=== PATIENT | male | born 1955 | race Caucasian/White ===

== ENCOUNTER 2020-10-14 11:31 | Outpatient (RCR) | payer OTHER, SELFPAY | END 2020-12-15 23:59 | LOC: IMMUN 11:31 | PROVIDERS: PCP Family Medicine; Visit Provider Family Medicine | DX: Z23 Encounter for immunization (principal) | CPT/HCPCS: 0002A; 91300 ==

== ENCOUNTER 2021-10-04 09:15 | Outpatient (CLI) | payer BC, SELFPAY ==
--- NOTE | 2021-10-04 09:25 | EKG12_ITS ---
Test Reason : PREOP Blood Pressure : / mmHG Vent. Rate : 072 BPM Atrial Rate : 072 BPM P-R Int : 144 ms QRS Dur : 104 ms QT Int : 384 ms P-R-T Axes : 075 074 062 degrees QTc Int : 420 ms Normal sinus rhythm Normal ECG Confirmed by TERRELL CANADA, OMAR ([id number]), design editor SCARLETT PENG ([id number]) on 10/05/2021 10:42:57 AM Referred By: Mitul Rodgers Confirmed By:OMAR TEJADA MD
[2021-10-04 10:00] LABS: Hematocrit 44.9 % (40-54); Hemoglobin 16.2 g/dL (13.0-16.5); Mean Corp Hgb Conc 36.1 g/dL (32-36); Mean Corpuscular Hgb 32.9 pg (27.0-32.0); Mean Corpuscular Volume 91.3 fL (80-94); Mean Platelet Vol. 11.1 fl (6.2-12.0); Platelet Count 164 K/mm3 (150-450); RBC Distribution Width CV 11.5 % (11.6-14.6); RBC Distribution Width SD 38.5 fl (35.1-43.9); Red Blood Count 4.92 M/mm3 (4.6-6.2); White Blood Count 6.1 K/mm3 (4.4-11.0)
[2021-10-04 10:36] LABS: Anion Gap 5 (5-15); BUN 14 mg/dL (7-18); BUN/Creat Ratio 16.5 RATIO (10-20); Calcium,Total 8.8 mg/dL (8.5-10.1); Chloride 104 mmol/L (98-107); Creatinine, Serum 0.85 mg/dL (0.70-1.30); EST Glomerular Filtration Rate 97 mL/min (>60); Est Glom Filt Rate - Afr Amer 117 mL/min (>60); Glucose 102 mg/dL (74-106); Sodium Level 137 mmol/L (136-145)
== END 2021-10-04 23:59 | disposition home or self-care (01) ==
PROVIDERS: PCP Family Medicine; Referring Provider Physician Assistant; Visit Provider Physician Assistant
DX: Z01.810 Encounter for preprocedural cardiovascular examination (principal); Z01.818 Encounter for other preprocedural examination
CPT/HCPCS: 36415; 80048; 85027; 93005

== ENCOUNTER → 2022-11-03 | Outpatient (CLI) | payer BC, SELFPAY ==
[2022-11-03 18:14] LABS: PSA,Total- Diagnostic 5.53 ng/mL (0.0-4.0)
== END | disposition home or self-care (01) ==
LOC: LAB 16:12
PROVIDERS: Referring Provider Urology; Visit Provider Urology
DX: R97.20 Elevated prostate specific antigen [PSA] (principal)
CPT/HCPCS: 36415; 84153

== ENCOUNTER → 2022-11-25 | Outpatient (CLI) | payer BC, SELFPAY ==
--- NOTE | 2022-11-25 17:53 | MRI_ITS ---
MR Pelvis WO/W Contrast 11/25/2022 6:13 PM COMPARISON: None CLINICAL HISTORY: Elevated PSA levels. TECHNIQUE: Standard prostate MR protocol was used before and after administration of 15 cc IV Clariscan. FINDINGS: Prostate volume: 60cc PSA density: PSA level not provided. Length of membranous urethra: 11mm Post-biopsy hemorrhage: None Multiparametric MR evaluation: Heterogeneous appearance of the central gland is consistent with benign prostatic hyperplasia. Lesion 1: There is a 0.9 x 1.4 x 1 cm moderately T2 hypointense lesion in the left posterolateral peripheral zone near base. It is bright on DWI and dark on ADC map. T2 -4 DWI -4 DCE -indeterminate Overall PI-RADS v2 score = 4 Capsular margin and neurovascular bundle: Intact. Seminal vesicles: Possible involvement of the left seminal vesicle. Lymph nodes: Right pelvic side wall lymphadenopathy measuring 8 mm. Bones: No suspicious lesions in the field of view. MRI/Pelvis W/WO Contrast IMPRESSION: 1.4 cm PI-RADS 4 lesion in the left posterolateral PZ near base. - Questionable involvement of the left seminal vesicle. - 8 mm right pelvic sidewall lymphadenopathy. - No evidence of macroscopic extracapsular extension. - No suspicious bone lesions. Electronically Signed: Vamshi Hernandez MD at 21:05 EDT ,
[2022-11-25 18:21] LABS: CREATININE FINGERSTICK < 0.9 mg/dL (0.70-1.30); EGFR FINGERSTICK > 60.0000 mL/min (>60)
== END | disposition home or self-care (01) ==
PROVIDERS: Referring Provider Urology; Visit Provider Urology
DX: R97.20 Elevated prostate specific antigen [PSA] (principal)
CPT/HCPCS: 72197; A9575

== ENCOUNTER → 2022-12-08 | Outpatient (CLI) | payer BC, SELFPAY ==
--- NOTE | 2022-12-08 | IMM_PTH ---
PATIENT: BRYSON BUENROSTRO LOC: [facility] U#:[id number] AGE/SX: 67/M ROOM: RE12/08/[address]: Dr. Rufino Dunaway MD : 1955 BED: DIS: 12/08/2022 SPEC #: [id number] RECD: 12/13/22 10:11 STATUS: HODA REQ #: [id number] JORGE: 12/08/22 00:[address]: Rufino Dunaway DEPT: IMMUNOHISTOCHEMISTRY RECD BY: Adela Poon ENTERED: 12/13/22 10:16 SP TYPE: IMMUNO OTHR DR: Dr. Shree Thomas, DO Tissues: F - PROSTATE LEFT Procedures: P40 (add) 34BE12 (initial) PHYSICIAN & INSTITUTION [place] [id number] SPECIMEN INFORMATION: Tissue Source: F - Left prostate, base, core biopsy Clinical Info: Elevated PSA Specimen Number: [id number] CPT code: 88449, 55479 METHODOLOGY: Deparaffinized sections of prefer/formalin-fixed tissue or PAP/DQ stained slides are incubated with monoclonal/polyclonal antibodies/oligonucleotide probes. Localization is made via biotin free immunoperoxidase method. Appropriate controls are performed and reacted as expected. Results on target cell population are indicated in the following table: RESULTS: ANTIBODY / CLONE RESULT Block F P40 (BC28) negative 34BE12 (34BE12) negative These tests were developed and their performance characteristics determined by [facility]. They may not have been cleared or approved by the U.S. Food and Drug Administration. The FDA has determined that such clearance or approval is not necessary. The above immunohistochemical/dualISH markers are ordered and reviewed by the Pathologist. INTERPRETATION: F. Left prostate, base, core biopsy: A minute focus of adenocarcinoma. SJ:ar 12/14/2022
--- NOTE | 2022-12-08 | PROSBIL_PTH ---
PATIENT: BRYSON BUENROSTRO LOC: [facility] U#:[id number] AGE/SX: 67/M ROOM: RE12/08/[address]: Dr. Rufino Dunaway MD : 1955 BED: DIS: 12/08/2022 SPEC #: [id number] RECD: 12/08/22 08:56 STATUS: HODA RETim #: [id number] JORGE: 12/08/22 00:[address]: Rufino Dunaway DEPT: SURGICAL PATHOLOGY RECD BY: Anthony Orozco ENTERED: 12/09/22 08:56 SP TYPE: PROST BX ZENOBIA DR: Dr. Shree Thomas DO Tissues: A - PROSTATE RIGHT B - PROSTATE RIGHT C - PROSTATE RIGHT D - PROSTATE LEFT E - PROSTATE LEFT F - PROSTATE LEFT Procedures: PROSTATE BX HEADER OPERATION: Prostate biopsy PRE-OP DIAGNOSIS: Elevated PSA TISSUE SUBMITTED: A - Right apex, B - Right mid, C - Right base, D - Left apex, E - Left mid, F - Left base MICROSCOPIC DIAGNOSIS A. Right prostate, apex, core biopsy: Prostatic tissue, negative for malignancy. B. Right prostate, mid, core biopsy: Prostatic tissue, negative for malignancy. C. Right prostate, base, core biopsy: Prostatic tissue, negative for malignancy. Focal mild acute and chronic inflammation. D. Left prostate, apex, core biopsy: Prostatic tissue, negative for malignancy. Focal mild chronic inflammation. E. Left prostate, mid, core biopsy: Prostatic tissue, negative for malignancy. F. Left prostate, base, core biopsy: A minute focus of adenocarcinoma. Milton grade: 3+3=6 Number of cores involved: 1/2 Proportion of tissue involved: <5% Perineural invasion: Not identified. Greatest tumor length: 0.1 cm See comment. SJ:rg 12/14/2022 COMMENT F. Immunohistochemistry ([id number]) supports the above diagnosis. MICROSCOPIC DESCRIPTION Slides are reviewed. GROSS DESCRIPTION A - Received is one container designated prostate, right apex. The specimen consists of two elongated fragments of light [place]-white soft tissue measuring 1.0 and 1.5 cm in length and 0.1 cm in diameter. The specimen is totally submitted in one cassette. B - Received is one container designated prostate, right mid. The specimen consists of two elongated fragments of light [place]-white soft tissue measuring 1.5 and 1.9 cm in length and 0.1 cm in diameter. The specimen is totally submitted in one cassette. C - Received is one container designated prostate, right base. The specimen consists of two elongated fragments of light [place]-white soft tissue measuring 1.2 and 1.8 cm in length and 0.1 cm in diameter. The specimen is totally submitted in one cassette. D - Received is one container designated prostate, left apex. The specimen consists of two elongated fragments of light [place]-white soft tissue each measuring 1.2 cm in length and 0.1 cm in diameter. The specimen is totally submitted in one cassette. E - Received is one container designated prostate, left mid. The specimen consists of two elongated fragments of light [place]-white soft tissue measuring 0.5 and 0.8 cm in length and 0.1 cm in diameter. The specimen is totally submitted in one cassette. F - Received is one container designated prostate, left base. The specimen consists of two elongated fragments of light [place]-white soft tissue measuring 0.8 and 0.9 cm in length and 0.1 cm in diameter. The specimen is totally submitted in one cassette. / SJ:rg 12/09/2022 TC:0 CPT: 97199 x6
== END | disposition home or self-care (01) ==
LOC: LABSPEC 16:21
PROVIDERS: Referring Provider Urology; Visit Provider Urology
DX: R97.20 Elevated prostate specific antigen [PSA] (principal)
CPT/HCPCS: 88305; 88341; 88342; G0416

== ENCOUNTER → 2023-06-16 | Outpatient (CLI) | payer BC, SELFPAY ==
[2023-06-16 17:44] LABS: PSA,Total- Diagnostic 8.36 ng/mL (0.0-4.0)
== END | disposition home or self-care (01) ==
PROVIDERS: Referring Provider Urology; Visit Provider Urology
DX: R97.20 Elevated prostate specific antigen [PSA] (principal)
CPT/HCPCS: 36415; 84153

== ENCOUNTER → 2023-12-12 | Outpatient (CLI) | payer BC, SELFPAY ==
[2023-12-12 17:52] LABS: PSA,Total- Diagnostic 6.03 ng/mL (0.0-4.0)
== END | disposition home or self-care (01) ==
LOC: LAB 16:32
PROVIDERS: Referring Provider Urology; Visit Provider Urology
DX: C61 Malignant neoplasm of prostate (principal)
CPT/HCPCS: 36415; 84153

== ENCOUNTER → 2024-06-17 | Outpatient (CLI) | payer BC, SELFPAY ==
[2024-06-17 17:27] LABS: PSA,Total- Diagnostic 8.89 ng/mL (0.0-4.0)
== END | disposition home or self-care (01) ==
LOC: LAB 16:20
PROVIDERS: Referring Provider Urology; Visit Provider Urology
DX: C61 Malignant neoplasm of prostate (principal)
CPT/HCPCS: 36415; 84153

== ENCOUNTER → 2024-09-16 | Outpatient (CLI) | payer BC, SELFPAY ==
[2024-09-16 18:53] LABS: PSA,Total- Diagnostic 6.42 ng/mL (0.00-4.00)
== END | disposition home or self-care (01) ==
LOC: LAB 16:30
PROVIDERS: Referring Provider Urology; Visit Provider Urology
DX: C61 Malignant neoplasm of prostate (principal)
CPT/HCPCS: 36415; 84153

== ENCOUNTER → 2025-04-01 | Outpatient (CLI) | payer BC, SELFPAY ==
[2025-04-01 17:46] LABS: PSA,Total- Diagnostic 6.90 ng/mL (0.00-4.00)
== END | disposition home or self-care (01) ==
LOC: LAB 16:31
PROVIDERS: Referring Provider Nurse Practitioner; Visit Provider Nurse Practitioner
DX: C61 Malignant neoplasm of prostate (principal)
CPT/HCPCS: 36415; 84153